=== PATIENT | female | born 1935 | race Caucasian/White ===

== ENCOUNTER → 2016-09-27 | Outpatient (CLI) | payer MEDICARE, OTHER ==
--- NOTE | 2016-09-27 09:10 | US ---
EXAM DESCRIPTION: US THYROID CLINICAL HISTORY: 80 y/o F, NONTOXIC GOITER COMPARISON: None TECHNIQUE: Grayscale and color Doppler imaging of the thyroid gland was performed. Static images were saved to the patient's medical record. FINDINGS: The right thyroid lobe measures 3.7 cm craniocaudal, the left measures 3.4 cm. There is a tiny 3 mm nodule seen within the lower right thyroid lobe. The thyroid gland is heterogeneous with at 3 mm isthmus. IMPRESSION: Today's exam demonstrates a heterogeneous appearing thyroid gland which can be seen in setting of thyroiditis. Tiny 3 mm right thyroid lobe nodule. Comparison with prior study or 1 year followup is suggested. Electronically signed by: Richar Mahajan MD 09/27/2016 09:08
== END ==
LOC: US 08:13
PROVIDERS: ATTEND Family Medicine
DX: E04.9 Nontoxic goiter, unspecified (principal)

== ENCOUNTER → 2016-10-25 | Outpatient (CLI) | payer MEDICARE, OTHER | END | disposition home or self-care (01) | LOC: GMAB 10:43 | PROVIDERS: ATTEND Family Medicine | DX: E03.9 Hypothyroidism, unspecified (principal); I10 Essential (primary) hypertension ==

== ENCOUNTER → 2016-10-26 | Outpatient (CLI) | payer MEDICARE, OTHER | END | disposition home or self-care (01) | LOC: GMAB 14:49 | PROVIDERS: ATTEND Family Medicine | DX: R31.9 Hematuria, unspecified (principal) ==

== ENCOUNTER → 2016-12-14 | Outpatient (CLI) | payer MEDICARE, OTHER ==
--- NOTE | 2016-12-15 10:59 | MRI ---
EXAM DESCRIPTION: Lumbar Spine w/o Contrast CLINICAL HISTORY: 81 years, Female, BACK PAIN bilateral lower extremity radiculopathy COMPARISON: None TECHNIQUE: Multiplanar multi sequence images of the lumbar spine were obtained without gadolinium contrast. FINDINGS: There is grade 1 anterolisthesis at L3-4. Vertebral body height and alignment are otherwise well-maintained. No bone marrow signal abnormalities are noted. The conus lies posterior to the L1-2 disc, and the cauda equina is unremarkable. The paraspinal and visualized retroperitoneal soft tissues are unremarkable. At L1-2, the intervertebral disc and facet joints are unremarkable. At L2-3, there is mild bilateral facet joint degeneration without significant disc bulging, central canal or neuroforaminal stenosis. At L3-4, there is concentric disc bulging, bilateral facet joint degeneration and ligament flavum thickening resulting in severe central canal and moderate bilateral neuroforaminal stenosis. Disc material and or facet joint hypertrophy likely results in abutment of the L4 nerve roots in the lateral recesses bilaterally. At L4-5, there is disc desiccation with loss of intervertebral disc height. Concentric disc bulging, worse in the left foraminal position, bilateral facet joint degeneration and ligamentum flavum thickening are noted resulting in only mild central canal stenosis. There is advanced left-sided and mild right-sided neuroforaminal stenosis with possible abutment of the exiting left L4 nerve root. At L5-S1, there is only mild concentric disc bulging with right-sided facet joint degeneration resulting in only mild bilateral neuroforaminal stenosis, slightly worse on the right side. IMPRESSION: Disc bulging and facet joint degeneration at L3-4 resulting in severe central canal stenosis, moderate bilateral neuroforaminal stenosis and probable nerve root abutment. Disc bulging and facet joint degeneration at L4-5 resulting in severe left-sided neuroforaminal stenosis with probable nerve root abutment. Less advanced central canal and right-sided neuroforaminal stenosis. Less advanced degenerative changes at L5-S1 with only mild neuroforaminal stenosis but no nerve root abutment. Electronically signed by: Reese Andrea MD 12/15/2016 10:54 AM CDT
== END ==
LOC: MRI 10:51
PROVIDERS: ATTEND Family Medicine
DX: M54.5 Low back pain (principal); M51.86 Other intervertebral disc disorders, lumbar region

== ENCOUNTER 2017-03-29 10:25 | Emergency (ER) | payer MEDICARE, OTHER ==
[2017-03-29 10:45] VITALS: TEMP 96.1
--- NOTE | 2017-03-29 10:52 | ED.PDOC ---
History of Present Illness - General Chief Complaint: Cardiovascular Problem Stated Complaint: heart racing,sweating Time Seen by Provider: 03/29/17 10:36 Source: patient Exam Limitations: no limitations - History of Present Illness Initial Comments: Patient presents with a racing heart. She says it has been going on for "hours ". She has a history of atrial fibrillation. She has mild dyspnea. Denies chest pain. + previous episodes. Non-smoker. Occasional bipedal edema. No other complaints. Allergies/Adverse Reactions: Allergies Lidocaine [From Xylocaine] Allergy (Severe, Verified 05/13/16 17:36) Shellfish Allergy Allergy (Verified 05/13/16 17:36) Home Medications: Ambulatory Orders Atorvastatin Calcium [Lipitor] 10 mg PO DAILY 12/01/14 Levothyroxine Sodium [Synthroid] 75 mcg PO DAILY 12/01/14 Meloxicam [Mobic] 7.5 mg PO DAILY 12/01/14 Metoprolol Tartrate 50 mg PO DAILY 12/01/14 Oxybutynin Xl [Ditropan Xl] 10 mg PO DAILY 12/01/14 Pantoprazole Tablet [Protonix] 40 mg PO DAILY 12/01/14 Losartan Potassium 50 mg PO DAILY 05/13/16 Venlafaxine HCl [Effexor Tab] 75 mg PO DAILY 05/13/16 Pregabalin [Lyrica] 50 mg PO BEDTIME 03/29/17 Warfarin Sodium 5 mg PO DAILY 03/29/17 Review of Systems - Review of Systems Constitutional: States: no symptoms reported EENTM: States: no symptoms reported Respiratory: States: no symptoms reported Cardiology: States: no symptoms reported Gastrointestinal/Abdominal: States: no symptoms reported Genitourinary: States: no symptoms reported Musculoskeletal: States: no symptoms reported Skin: States: other - hives this morning Neurological: States: no symptoms reported Endocrine: States: no symptoms reported Hematologic/Lymphatic: States: no symptoms reported Past Medical History (General) - Patient Medical History Hx Seizures: No Hx Stroke: No Hx Dementia: No Hx Asthma: No Hx of COPD: No Hx Cardiac Disorders: Yes - A-Fib Hx Congestive Heart Failure: No Hx Pacemaker: No Hx Hypertension: Yes Hx Thyroid Disease: Yes - hypo Hx Diabetes: No Hx Gastroesophageal Reflux: Yes Hx Renal Disease: No Hx Cancer: No Hx of HIV: No Hx Hepatitis C: No Hx MRSA: No Surgical History: tonsillectomy, Hysterectomy - Vaccination History Hx Influenza Vaccination: Yes Hx Pneumococcal Vaccination: - unknown - Social History Hx Tobacco Use: No Hx Alcohol Use: No Hx Depression: Yes - Female History Patient : No Family Medical History - Family History Mother Living Status: Cause of : pancreatic CA Hx Family Cancer: Yes - pancreas Physical Exam - Physical Exam General Appearance: Alert Respiratory: lungs clear Cardiovascular/Chest: normal peripheral pulses, regular rate, rhythm Gastrointestinal/Abdominal: normal bowel sounds, non tender, soft Skin Exam: normal color Progress - Progress Progress: 03/29/17 12:59 Patient later told me that she had hives this morning. Her heart rate normalized while in the E.D. Labs unremarkable. EKG read by me showed NSR with no ST elevations nor depressions and no T wave inversions. Troponin negative. Departure - Departure Clinical Impression: Sinus tachycardia, Hives Disposition: Discharge to Home or Self Care Condition: Good Departure Forms: ED Discharge - Pt. Copy, Patient Portal Self Enrollment Diet: resume usual diet Activity: increase activity as tolerated Referrals: Mamadou Gil MD [Primary Care Provider] - 1-2 Weeks Home Medications: Ambulatory Orders Atorvastatin Calcium [Lipitor] 10 mg PO DAILY 12/01/14 Levothyroxine Sodium [Synthroid] 75 mcg PO DAILY 12/01/14 Meloxicam [Mobic] 7.5 mg PO DAILY 12/01/14 Metoprolol Tartrate 50 mg PO DAILY 12/01/14 Oxybutynin Xl [Ditropan Xl] 10 mg PO DAILY 12/01/14 Pantoprazole Tablet [Protonix] 40 mg PO DAILY 12/01/14 Losartan Potassium 50 mg PO DAILY 05/13/16 Venlafaxine HCl [Effexor Tab] 75 mg PO DAILY 05/13/16 Pregabalin [Lyrica] 50 mg PO BEDTIME 03/29/17 Warfarin Sodium 5 mg PO DAILY 03/29/17
[2017-03-29 13:09] VITALS: BP 144/79; O2SAT 95
== END 2017-03-29 13:08 | disposition home or self-care (01) ==
LOC: ER 10:25
DX: R00.0 Tachycardia, unspecified (principal); L50.9 Urticaria, unspecified; I48.91 Unspecified atrial fibrillation; I10 Essential (primary) hypertension; E03.9 Hypothyroidism, unspecified; K21.9 Gastro-esophageal reflux disease without esophagitis; Z88.4 Allergy status to anesthetic agent; Z91.013 Allergy to seafood; Z79.01 Long term (current) use of anticoagulants; Z79.899 Other long term (current) drug therapy

== ENCOUNTER → 2017-06-21 | Outpatient (CLI) | payer MEDICARE, OTHER | LOC: MAMMO 15:59 | PROVIDERS: ATTEND Family Medicine | DX: Z12.31 Encounter for screening mammogram for malignant neoplasm of breast (principal) | CPT/HCPCS: 77063; G0202 ==

== ENCOUNTER → 2017-07-12 | Outpatient (CLI) | payer MEDICARE, OTHER ==
--- NOTE | 2017-07-13 14:40 | US ---
EXAM DESCRIPTION: Breast,Left: Ultrasound CLINICAL HISTORY: 81 yearsFemaleABNORMAL MAMMO COMPARISON: Digital 3-D tomosynthesis left breast same visit. Digital 3-D screening bilateral study 06/21/2017. TECHNIQUE: Transcutaneous scanning of the left breast utilizing two-dimensional and Doppler modes. Scanning performed by the windshield technician and Dr. Triana. FINDINGS: Scanning of the upper-outer quadrant of the middle third of the left breast. Hypoechoic mass density in the left breast at the 200 clock position 7 cm from the nipple. Dimensions are 4.8 x 7.3 x 3.2 mm with posterior acoustic shadowing on the edges. Midline posterior acoustic enhancement predominates. Parallel orientation. Echogenic center within the mass without significant calcification. Nonvascular. No other solid mass. No discrete cyst. No parenchymal edema or large calcifications. No skin thickening. IMPRESSION: 1. Bi-Rads Category 2: Benign. 2. Please refer to digital 3-D tomosynthesis left breast diagnostic examination on this visit. The FINDINGS and the follow-up plan were reviewed in person with the patient after the examination. Written communication explaining the IMPRESSION and follow-up will be mailed to the patient and referring care provider. Electronically signed by: Ludwin Triana MD 07/13/2017 2:39 PM DIRECTOR OF VALUATION
--- NOTE | 2017-07-13 14:44 | MAM ---
EXAM DESCRIPTION: 3D Diagnostic, Left: Digital Mammography CLINICAL HISTORY: 81 yearsFemaleABNORMAL MAMMO . No complaints. Focal asymmetry at the 130 clock position of the middle third of the upper-outer quadrant of the left breast.. COMPARISON: 3-D screening tomosynthesis bilateral study 06/21/2017. Targeted left breast ultrasound following this examination.. Report from prior examination also reviewed. TECHNIQUE: Left breast mL and LM projection full-field images, 3-D tomosynthesis digital mammographic technique. Also left breast synthesized MLO and LM full-field images. Digital focal spot compression of the region of interest in the central left breast on CC and LM projections. CAD not utilized. FINDINGS: Left breast parenchymal density pattern is: Scattered areas of fibroglandular density. No skin thickening or nipple retraction solitary microcalcifications. Focal asymmetry is no longer present on the compression images. No abnormal microcalcifications or mass density. ULTRASOUND: Scanning of the upper-outer quadrant of the middle third of the left breast. Hypoechoic mass density in the left breast at the 200 clock position 7 cm from the nipple. Dimensions are 4.8 x 7.3 x 3.2 mm with posterior acoustic shadowing on the edges. Midline posterior acoustic enhancement predominates. Parallel orientation. Echogenic center within the mass without significant calcification. Nonvascular. Consistent with a lymph node. No other solid mass. No discrete cyst. No parenchymal edema or large calcifications. No skin thickening. IMPRESSION: 1. BI-RADS CATEGORY: 2 - BENIGN FINDINGS. FOLLOW UP: Routine digital bilateral screening, one year interval from June 2017 The FINDINGS and the follow-up plan were reviewed in person with the patient after the examination. Written communication explaining the IMPRESSION and follow-up will be mailed to the patient and referring care provider. According to the [employer], yearly mammograms are recommended starting at age 40 and continuing as long as a woman is in good health. Any breast change noted on a breast self-exam should be reported promptly to the patient's healthcare provider. Breast MRI is recommended for women with an approximately 20-25% or greater lifetime risk of breast cancer, including women with a strong family history of breast or ovarian cancer and women who have been treated for Hodgkin's disease. A negative mammographic report should not delay tissue diagnosis in patients with significant clinical history or physical findings. Extremely dense breast tissue limits the sensitivity of digital mammography. Electronically signed by: Ludwin Triana MD 07/13/2017 2:43 PM [facility]
== END | disposition home or self-care (01) ==
LOC: MAMMO 15:04
PROVIDERS: ATTEND Family Medicine
DX: R92.8 Other abnormal and inconclusive findings on diagnostic imaging of breast (principal)
CPT/HCPCS: 76641; G0206; G0279

== ENCOUNTER 2017-08-21 08:12 | Emergency (ER) | payer MEDICARE, OTHER ==
[2017-08-21] MEDS ORDERED: OXYMETAZOLINE NASAL SPRAY 15 ML BTTL ONE (08:25)
[2017-08-21] MEDS ORDERED: OXYMETAZOLINE NASAL SPRAY 15 ML BTTL BNAS PRN (08:29)
--- NOTE | 2017-08-21 08:47 | ED.PDOC ---
History of Present Illness - General Chief Complaint: ENT Problem Stated Complaint: nose bleed Time Seen by Provider: 08/21/17 08:36 Source: patient - History of Present Illness Initial Comments: PT PRESENTS TO THE ED WITH COMPLAINT OF NOSE BLEED SINCE 5:00AM. PT STATES THIS IS THE FIRST TIME SHE HAS HAD A NOSEBLEED RECENTLY AND SHE REPORTS THAT SHE TAKES COUMADIN. PT DENIES CURRENT URI SYMPTOMS. Timing/Duration: this morning Severity: moderate EENT Location: nose Prearrival Treatment: no prearrival treatment Improving Factors: other - HOLDING PRESSURE Worsening Factors: nothing Allergies/Adverse Reactions: Allergies Lidocaine [From Xylocaine] Allergy (Severe, Verified 08/21/17 08:20) Shellfish Allergy Allergy (Verified 08/21/17 08:20) Home Medications: Ambulatory Orders Pantoprazole Tablet [Protonix] 40 mg PO DAILY 12/01/14 Losartan Potassium 50 mg PO DAILY 05/13/16 Venlafaxine HCl [Effexor Tab] 75 mg PO DAILY 05/13/16 Warfarin Sodium 5 mg PO DAILY 03/29/17 Atorvastatin Calcium [Lipitor] 10 mg PO DAILY 08/21/17 Levothyroxine Sodium [Synthroid] 100 mcg PO DAILY 08/21/17 Metoprolol Succinate [Metoprolol Succinate ER] 50 mg PO DAILY 08/21/17 Oxybutynin Chloride [Oxybutynin Chloride ER] 10 mg PO DAILY 08/21/17 Review of Systems - Review of Systems Constitutional: Denies: chills, fever EENTM: Denies: nose congestion, throat pain Respiratory: Denies: cough, short of breath Cardiology: Denies: chest pain, palpitations Gastrointestinal/Abdominal: Denies: nausea, vomiting Genitourinary: Denies: dysuria, frequency Musculoskeletal: Denies: joint pain, joint swelling Skin: Denies: dryness, lesions Neurological: Denies: headache, numbness Endocrine: States: no symptoms reported Hematologic/Lymphatic: States: no symptoms reported Past Medical History (General) - Patient Medical History Hx Seizures: No Hx Stroke: No Hx Dementia: No Hx Asthma: No Hx of COPD: No Hx Cardiac Disorders: Yes - A-Fib Hx Congestive Heart Failure: No Hx Pacemaker: No Hx Hypertension: Yes Hx Thyroid Disease: Yes - hypo Hx Diabetes: No Hx Gastroesophageal Reflux: Yes Hx Renal Disease: No Hx Cancer: No Hx of HIV: No Hx Hepatitis C: No Hx MRSA: No Surgical History: tonsillectomy, Hysterectomy, other - Vaccination History Hx Influenza Vaccination: Yes Hx Pneumococcal Vaccination: No - Social History Hx Tobacco Use: No Hx Alcohol Use: No Hx Depression: Yes - Female History Patient is a Female of Child Bearing Age (10 -59 yrs old): No Patient : No Family Medical History - Family History Mother Living Status: Cause of : pancreatic CA Hx Family Cancer: Yes - pancreas Physical Exam - Physical Exam General Appearance: Alert, Anxious, Well Developed, Well Groomed, Well Hydrated Eye Exam: bilateral normal Nasal Exam: active bleeding - FROM LEFT NARE, NO BLEEDING SITE IDENTIFIED Throat Exam: normal mouth inspection, other - BLOOD IN THE POSTERIOR OROPHARYNX Neck: non-tender, supple, normal inspection Neurologic: alert, normal mood/affect, oriented x 3 Skin Exam: normal color, warm/dry Progress - Progress Progress: 08/21/17 08:30 AFRIN NASAL SPRAY ADMINISTERED IN BOTH NARES. PT INSTRUCTED TO HOLD PRESSURE. 08/21/17 08:55 BLEEDING HAS SLOWED SIGNIFICANTLY ON RE-EVAL. LAB FINDINGS DISCUSSED. ADVISED PT TO SKIP NEXT 2 DOSES OF COUMADIN AND TO FOLLOW UP WITH PCP IN THE NEXT 2 DAYS FOR LAB RECHECK. ADDITIONAL AFRIN ADMINISTERED. PT CONTINUES TO HOLD PRESSURE. 08/21/17 09:40 PT CONTINUES TO HAVE BLEEDING DOWN THE POSTERIOR OROPHARYNX. NASAL PACKING DEVICE PLACED IN LEFT NARE. 08/21/17 10:16 PT COMPLAINS OF DIZZINESS AND NAUSEA. PTS BP FOUND TO BE 63/40. IV ACCESS ESTABLISHED AND FLUID BOLUS ORDERED. LABS SENT. 08/21/17 10:56 PT RESTING COMFORTABLY, BP IMPROVED TO 95 AFTER APPROXIMATELY 3OOCC NS BOLUS. 08/21/17 11:25 PT REPORTS COMPLETE RESOLUTION OF SYMPTOMS. BP 120 SYTOLIC. PT ABLE TO AMBULATE TO RESTROOM WITHOUT DIFFICULTY. 08/21/17 12:15 PT BECAME LIGHT HEADED AGAIN, BP 113 SYSTOLIC. PT NOW HAS OOZING AROUND THE NASAL PACK. WILL MAKE ARRANGEMENTS TO TRANSFER FOR ENT CONSULTATION. - Results/Orders Results/Orders: Laboratory Tests 08/21/17 08/21/17 08/21/17 08:38 08:58 08:58 WBC 5.4 RBC 4.50 Hgb 13.7 Hct 40.8 MCV 90.6 MCH 30.5 MCHC 33.6 RDW 13.8 Plt Count 200 MPV 7.9 Absolute Neuts (auto) 2.90 Absolute Lymphs (auto) 1.80 Absolute Monos (auto) 0.60 Absolute Eos (auto) 0.10 Absolute Basos (auto) 0.00 Neutrophils % 54.0 Lymphocytes % 33.1 Monocytes % 10.5 H Eosinophils % 1.8 Basophils % 0.6 PT 44.5 H* INR 3.990 H* PTT (SP) 53.6 H Sodium 140 Potassium 3.8 Chloride 109 Carbon Dioxide 25 Anion Gap 9.8 L BUN 16 Creatinine 0.63 BUN/Creatinine Ratio 25.4 H Random Glucose 109 H Serum Osmolality 281.2 Calcium 9.1 - EKG/XRAY/CT EKG: Abraham - @56BPM, NL INTERVALS, NL AXIS, Sinus, LVH, nonspecific ST T wave Chg, Unchanged from - 03/29/17 - Consult/PCP Time Called: 10:05 Consult/PCP: DR. GIL Consult Reason/Comments: DISCUSSED CASE. HE AGREES TO FOLLOW UP WITH PT ON MON AT 830. Departure - Departure Clinical Impression: Supratherapeutic INR, Epistaxis not due to trauma, Vaso vagal episode, Hypotension Time of Disposition: 13:41 Disposition: Transfer to Hospital Condition: Fair Departure Forms: ED Discharge - Pt. Copy, Patient Portal Self Enrollment Instructions: DI for Nosebleed Referrals: Mamadou Gil MD [Primary Care Provider] - 1-2 Days (PT TO FOLLOW UP 830 AM MONDAY MORNING FOR NASAL PACK REMOVAL AND REPEAT INR. ) Home Medications: Ambulatory Orders Pantoprazole Tablet [Protonix] 40 mg PO DAILY 12/01/14 Losartan Potassium 50 mg PO DAILY 05/13/16 Venlafaxine HCl [Effexor Tab] 75 mg PO DAILY 05/13/16 Warfarin Sodium 5 mg PO DAILY 03/29/17 Atorvastatin Calcium [Lipitor] 10 mg PO DAILY 08/21/17 Levothyroxine Sodium [Synthroid] 100 mcg PO DAILY 08/21/17 Metoprolol Succinate [Metoprolol Succinate ER] 50 mg PO DAILY 08/21/17 Oxybutynin Chloride [Oxybutynin Chloride ER] 10 mg PO DAILY 08/21/17 Transfer to Outside Facility - Transfer Information Accepting Provider:: DR. Mehreen MILLER Accepting Facility: [facility] Reason for Transfer: required specialist not available - ENT
[2017-08-21] MEDS ORDERED: SODIUM CHLORIDE 0.9% 1000ML 1,000 ML ONE (10:12)
[2017-08-21] MEDS ORDERED: SODIUM CHLORIDE 0.9% (FLUSH) 10 ML SYG IV PRN (10:17)
[2017-08-21] MEDS ORDERED: ONDANSETRON INJ 4 MG/2 ML VIAL IV ONE (10:20)
[2017-08-21] MEDS ORDERED: SODIUM CHLORIDE 0.9% 1000ML 1,000 ML IVS ONE (10:26)
[2017-08-21 12:55] VITALS: O2SAT 94
[2017-08-21 14:41] VITALS: BP 144/82; TEMP 97.4
== END 2017-08-21 14:35 | disposition short-term general hospital (02) ==
LOC: ER 08:12
DX: R04.0 Epistaxis (principal); R55 Syncope and collapse; I95.9 Hypotension, unspecified; R79.1 Abnormal coagulation profile; I48.91 Unspecified atrial fibrillation; I10 Essential (primary) hypertension; E03.9 Hypothyroidism, unspecified; K21.9 Gastro-esophageal reflux disease without esophagitis; Z79.01 Long term (current) use of anticoagulants; Z79.899 Other long term (current) drug therapy
CPT/HCPCS: 36415; 36416; 80048; 81001; 82948; 85025; 85610; 85730; 93005; J2405; J7030

== ENCOUNTER → 2017-08-23 | Outpatient (CLI) | payer MEDICARE, OTHER | END | disposition home or self-care (01) | LOC: GMAB 10:31 | PROVIDERS: ATTEND Family Medicine | DX: E03.9 Hypothyroidism, unspecified (principal) ==

== ENCOUNTER → 2017-11-28 | Outpatient (CLI) | payer MEDICARE, OTHER | LOC: GMAB 10:47 | PROVIDERS: ATTEND Family Medicine | DX: E03.9 Hypothyroidism, unspecified (principal); N39.0 Urinary tract infection, site not specified ==

== ENCOUNTER 2017-12-12 10:56 | Inpatient (IN) | payer MEDICARE, OTHER ==
--- NOTE | 2017-12-12 11:12 | ED.PDOC ---
History of Present Illness - General Chief Complaint: General Stated Complaint: abdominal pain Time Seen by Provider: 12/12/17 11:11 Source: patient Exam Limitations: no limitations - History of Present Illness Initial Comments: Valentina Ivey 82 y/o female brought by friends stating feels feverish yesterday, felt achy on her lower abdomen radiating to upper lumbar area and also with burning urination.Had normal BM,no tarry stools,no diarrhea,felt nauseated ate lots of pineapple yesterday,and this morning had banana and fig cookies.She has A.fib on eliquis,HTN. Timing/Duration: 24 hours Severity: moderate Improving Factors: nothing Worsening Factors: nothing Associated Symptoms: other - see hpi Allergies/Adverse Reactions: Allergies Lidocaine [From Xylocaine] Allergy (Severe, Verified 12/12/17 11:19) Shellfish Allergy Allergy (Verified 12/12/17 11:19) Home Medications: Ambulatory Orders Pantoprazole Tablet [Protonix] 40 mg PO DAILY 12/01/14 Losartan Potassium 50 mg PO DAILY 05/13/16 Venlafaxine HCl [Effexor Tab] 75 mg PO DAILY 05/13/16 Atorvastatin Calcium [Lipitor] 10 mg PO DAILY 08/21/17 Levothyroxine Sodium [Synthroid] 100 mcg PO DAILY 08/21/17 Metoprolol Succinate [Metoprolol Succinate ER] 50 mg PO DAILY 08/21/17 Oxybutynin Chloride [Oxybutynin Chloride ER] 10 mg PO DAILY 08/21/17 Apixaban [Eliquis] 2.5 mg PO DAILY 12/12/17 Review of Systems - Review of Systems Constitutional: States: fever EENTM: States: no symptoms reported Respiratory: States: no symptoms reported Cardiology: States: no symptoms reported Gastrointestinal/Abdominal: States: see HPI Musculoskeletal: States: see HPI Neurological: States: no symptoms reported All other Systems: Reviewed and Negative, No Change from Baseline Past Medical History (General) - Patient Medical History Hx Seizures: No Hx Stroke: No Hx Dementia: No Hx Asthma: No Hx of COPD: No Hx Cardiac Disorders: Yes - A-Fib Hx Congestive Heart Failure: No Hx Pacemaker: No Hx Hypertension: Yes Hx Thyroid Disease: Yes - hypo Hx Diabetes: No Hx Gastroesophageal Reflux: Yes Hx Renal Disease: No Hx Cancer: No Hx of HIV: No Hx Hepatitis C: No Hx MRSA: No Surgical History: appendectomy, tonsillectomy, other - hysterectomy,rectocele/ cystocele surgery,cataract,cardiac cath,TST,colonoscopy,EGD - Vaccination History Hx Influenza Vaccination: Yes Hx Pneumococcal Vaccination: No - Social History Hx Tobacco Use: No Hx Alcohol Use: No Hx Depression: Yes Hx Physical Abuse: No Hx Emotional Abuse: No - Activities of Daily Living Patient Lives Alone: Yes Grooming Ability: Independent Eating (Feeding) Ability: Independent Toileting Ability: Independent - Female History Patient : No Family Medical History - Family History Mother Living Status: Cause of : pancreatic CA Hx Family Diabetes: Yes - dad Hx Family Cancer: Yes - pancreas-mom;multiple myeloma-brother Hx Family;Other: [id number] Physical Exam - Physical Exam General Appearance: Alert, Comfortable, No apparent distress Eye Exam: bilateral normal Ears, Nose, Throat: hearing grossly normal, normal ENT inspection Neck: non-tender, full range of motion, supple Respiratory: chest non-tender, lungs clear, normal breath sounds, no respiratory distress Cardiovascular/Chest: normal peripheral pulses, regular rate, rhythm, no gallop , no murmur Peripheral Pulses: radial,right: 2+, radial,left: 2+ Gastrointestinal/Abdominal: normal bowel sounds, non tender, soft, no organomegaly Back Exam: no CVA tenderness, no vertebral tenderness Extremity: non-tender, normal inspection, no pedal edema, normal capillary refill Neurologic: alert, oriented x 3 Skin Exam: normal color, warm/dry Progress - Progress Progress: 12/12/17 13:09 Vital Signs - 8 hr 12/12/17 11:13 Temperature 99.3 F Pulse Rate [ 103 H Left Radial] Respiratory 20 Rate Blood Pressure 141/65 [Left Arm] O2 Sat by Pulse 96 Oximetry - Results/Orders Results/Orders: 12/12/17 11:12 IV Care:Saline Lock per Protoc QSHIFT 12/12/17 11:22 URINE CULTURE W/COLONY COUNT Stat 12/12/17 11:31 BLOOD CULTURE Stat 12/12/17 12:52 URINE CULTURE W/COLONY COUNT Stat 12/12/17 12:54 levoFLOXacin 500MG IV [Levaquin 500MG IV] 500 mg Premix Bag 1 bag IVPB ONCE Laboratory Results - last 24 hr 12/12/17 12/12/17 12/12/17 11:22 11:31 11:31 WBC 9.1 RBC 4.44 Hgb 13.0 Hct 38.6 MCV 86.8 MCH 29.2 MCHC 33.6 RDW 14.2 Plt Count 152 MPV 7.8 Absolute Neuts (auto) 7.80 H Absolute Lymphs (auto) 0.40 L Absolute Monos (auto) 0.90 H Absolute Eos (auto) 0.00 Absolute Basos (auto) 0.00 Neutrophils % 85.4 H Lymphocytes % 4.6 L Monocytes % 9.5 H Eosinophils % 0.1 L Basophils % 0.4 PT 15.6 H INR 1.350 PTT (SP) 33.2 Sodium 135 Potassium 3.6 Chloride 103 Carbon Dioxide 21 Anion Gap 14.6 BUN 9 Creatinine 0.72 BUN/Creatinine Ratio 12.5 Random Glucose 234 H Serum Osmolality 276.3 Lactic Acid 3.5 H* Calcium 9.2 Magnesium 1.7 L Total Bilirubin 1.3 H Direct Bilirubin 0.2 Indirect Bilirubin 1.1 H AST 44 H ALT 38 Alkaline Phosphatase 77 Creatine Kinase 17 L CK-MB (CK-2) 0.5 CK-MB (CK-2) % Not Reportable Troponin I < 0.02 Serum Total Protein 7.1 Albumin 3.7 Lipase 26 Urine Color Yellow Urine Appearance Cloudy Urine pH 6.5 Ur Specific [place] 1.015 Urine Protein 100 H Urine Glucose (UA) Negative Urine Ketones Trace Urine Blood Small H Urine Nitrite Positive H Urine Bilirubin Negative Urine Urobilinogen 1.0 Ur Leukocyte Esterase Small H Urine RBC 3-5 H Urine WBC Tntc H Ur Epithelial Cells 30-40 Urine Bacteria 4+ H - EKG/XRAY/CT XRAY: chest - atelectasis CT Ordered: Yes - abd/p-fatty liver Departure - Departure Clinical Impression: Hyperglycemia, unspecified, MARLOW (nonalcoholic steatohepatitis), History of atrial fibrillation UTI (urinary tract infection) Qualifiers: Urinary tract infection type: site unspecified Hematuria presence: without hematuria Qualified Code(s): N39.0 - Urinary tract infection, site not specified Fever Qualifiers: Fever type: due to other condition Qualified Code(s): R50.81 - Fever presenting with conditions classified elsewhere Time of Disposition: 13:15 Disposition: Admit Patient Condition: Fair Departure Forms: Patient Portal Self Enrollment Referrals: Mamadou Gil MD [Primary Care Provider] - 1-2 Weeks Home Medications: Ambulatory Orders Pantoprazole Tablet [Protonix] 40 mg PO DAILY 12/01/14 Losartan Potassium 50 mg PO DAILY 05/13/16 Venlafaxine HCl [Effexor Tab] 75 mg PO DAILY 05/13/16 Atorvastatin Calcium [Lipitor] 10 mg PO DAILY 08/21/17 Levothyroxine Sodium [Synthroid] 100 mcg PO DAILY 08/21/17 Metoprolol Succinate [Metoprolol Succinate ER] 50 mg PO DAILY 08/21/17 Oxybutynin Chloride [Oxybutynin Chloride ER] 10 mg PO DAILY 08/21/17 Apixaban [Eliquis] 2.5 mg PO DAILY 12/12/17 Decision To Admit - Decistion To Admit Decision to Admit Reason: Admit from ER Decision to Admit Date: 12/12/17 - D/W [place] Hernández-ANP/Hospitalist Decision to Admit Time: 13:10
[2017-12-12] MEDS ORDERED: PROMETHAZINE HCL INJ 25 MG/ML VIAL IM ONE (12:01)
[2017-12-12] MEDS ORDERED: fentaNYL CITRATE INJ 50 MCG/ML AMP IV ONE (12:01)
[2017-12-12] MEDS ORDERED: SODIUM CHLORIDE 0.9% 500ML 500 ML IVS ONE (12:02)
--- NOTE | 2017-12-12 12:26 | RAD ---
EXAM DESCRIPTION: Chest,1 View CLINICAL HISTORY: 82 years Female, pain COMPARISON: Previous study May 13, 2016 TECHNIQUE: AP portable chest. FINDINGS: Heart size is normal with normal pulmonary vascularity. Discoid atelectasis or linear scar in the left lung base appears slightly more prominent than on previous study. Prominent ascending aorta is noted. No consolidating infiltrate. No pulmonary mass or worrisome nodule. No pneumothorax or pleural effusion. Bones are unremarkable. IMPRESSION: Discoid atelectasis in left lung base. Otherwise no acute process is identified in the chest. Electronically signed by: Derrick Oakes MD 12/12/2017 12:24 PM CDT
[2017-12-12] MEDS ORDERED: levoFLOXacin 500MG IV 500 MG in PREMIX BAG 1 BAG IVPB ONE (12:54)
--- NOTE | 2017-12-12 12:54 | CT ---
EXAM DESCRIPTION: Abdoment/Pelvis w/o Contrast CLINICAL HISTORY: abdominal pain COMPARISON: May 19, 2016 TECHNIQUE: Noncontrast transaxial CT images of the abdomen and pelvis are obtained. This exam was performed according to our departmental dose-optimization program, which includes automated exposure control, adjustment of the mA and/or kV according to patient size and/or use of iterative reconstruction technique . FINDINGS: Lung bases are unremarkable. Question small hiatal hernia. Liver remains enlarged measuring 17.3 cm with heterogeneous decreased attenuation is seen with fatty infiltration. 6 mm gallstone in the dependent portion of the gallbladder seen without gallbladder wall thickening or surrounding inflammation. No biliary tract obstruction is seen. Noncontrast appearance of the spleen, pancreas, and adrenal glands is unremarkable. Mild atherosclerotic disease. There are at least 2 tiny less than 2 mm nonobstructing calcifications in lower pole calyx of the right kidney. No ureteral calcification or obstruction is seen. Simple 1.9 cm left renal cortical cyst in the upper pole is seen. Urinary bladder is contracted and unremarkable. 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 The ovaries are not identified. The appendix is not seen. No small bowel obstruction or bowel wall thickening. Stomach is unremarkable. Colon is unremarkable. Mild scattered diverticuli of the descending to sigmoid colon without associated inflammatory changes or fluid collection is seen. Small bilateral fat-containing inguinal hernias. No pathologic lymphadenopathy. Moderate to severe disc disease and facet arthropathy from L3 through S1 is seen. IMPRESSION: Cholelithiasis. Nonobstructing right nephrolithiasis. Mild colon diverticulosis without CT evidence of diverticulitis. Hepatomegaly with hepatic steatosis is again seen. Other stable chronic findings as described above. Electronically signed by: Toi Frederick MD 12/12/2017 12:52 PM CDT
[2017-12-12] MEDS ORDERED: levoFLOXacin 500MG IV 100 ML IVPB ONE (14:14)
--- NOTE | 2017-12-12 14:31 | HP ---
SUPERVISING PHYSICIAN: Deon Hernadez M.D. CHIEF COMPLAINT: Abdominal pain. HISTORY OF PRESENT ILLNESS: Ms. Ivey is an 82 year-old female patient that was brought by a friend to the Emergency Department because she noted she was feeling like she had a fever yesterday and achy all over with lower abdominal pain radiating up into her lower back, also with some dysuria. She denied any diarrhea, tarry stools, but had some nausea. In the E. R., laboratory studies showed she had a white count of 9,100 with a left shift on differential. Chemistries showed normal electrolytes. Magnesium was low at 1.7. Bilirubin was slightly elevated at 1.3 with an elevated AST of 44. All other liver functions were within normal limits. Lipase was normal at 26 as well as troponin was less than 0.02. Urinalysis was completed and showed she had a significant pyuria with too numerous to count WBCs and 4+ bacteria with the dipstick revealing positive nitrites. Lactic acid was completed that showed to be elevated at 3.5. Vital signs showed that the patient was running a low- grade temperature at 99.3. Given the lactic acid that was elevated along with the significant urinary tract infection and continuing abdominal pains, Dr. Chirinos, E. R. physician, had a CT abdomen and pelvis completed without contrast and per radiology interpretation there was note of a nonobstructing right nephrolithiasis, some mild colon diverticulosis without any CT evidence of diverticulitis with other chronic findings. Given the low-grade fever, lactic acid that is elevated and significant pyuria, the patient is now going to be admitted for sepsis due to underlying urinary tract infection. Blood cultures were completed and she was started on Levaquin in the E. R. She was admitted in stable condition to the Medical/Surgical floor. PAST MEDICAL HISTORY: 1. Seasonal allergies. 2. Gastroesophageal reflux disease. 3. Hyperlipidemia. 4. Hypertension. 5. Hypothyroidism on supplementation. 6. Degenerative disc disease. 7. History of atrial fibrillation on Eliquis. 8. Depression and anxiety. PAST SURGICAL HISTORY: 1. Hysterectomy. 2. Tonsillectomy. 3. Cataract surgery of the right eye. HOME MEDICATIONS: 1. Effexor 75 mg daily. 2. Protonix 40 mg daily. 3. Oxybutynin chloride extended release 10 mg daily. 4. Metoprolol succinate extended release 50 mg daily. 5. Losartan potassium 50 mg. 6. Synthroid 100 mcg daily. 7. Lipitor 10 mg daily. 8. Eliquis 2.5 mg daily. ALLERGIES: LIDOCAINE AND SHELL FISH ALLERGY. FAMILY HISTORY: Mother had pancreatic cancer. SOCIAL HISTORY: The patient is a . She lives in [place]. She has never smoked and does not drink alcohol. REVIEW OF SYSTEMS: CONSTITUTIONAL: Complains of chills and fever. HEENT: No nasal congestion, headache, sore throat, ear aches. RESPIRATORY: No cough, shortness of breath, wheezing. CARDIOVASCULAR: No chest pains, palpitations or syncopal episodes. GASTROINTESTINAL: As noted in history of present illness, generalized abdominal pain with some nausea but no vomiting. No constipation. GENITOURINARY: As noted in history of present illness, dysuria. No hematuria NEUROLOGIC: Denies any headaches, syncope, ataxia, seizures. PHYSICAL EXAMINATION: VITAL SIGNS: Initial temperature in the Emergency Room showed a low-grade temperature of 99.3, pulse 103, blood pressure 141/65, respirations 20, satting 96% on room air. Admission weight was 93.7 kg. GENERAL: The patient was alert. Appears to be in no acute distress. Well nourished. Well hydrated. HEENT: Tympanic membranes were clear bilaterally. Oropharynx was pink and moist without any lesions. NECK: Supple, non-tender. Full range of motion. No jugular venous distention. CHEST: Lungs are clear to auscultation without any rhonchi, wheezing or rales. CARDIOVASCULAR: Regular rate and rhythm without appreciable murmurs, gallops, or rubs. ABDOMEN: Soft, non-tender with positive bowel sounds. There was some tenderness noted to the suprapubic area. BACK: No CVA tenderness. EXTREMITIES: No clubbing, cyanosis or edema. NEUROLOGIC: She is alert and oriented times three. LABORATORY: White count showed to be 9,100 with 13.0 hemoglobin, hematocrit 38.6, platelet count 152,000. Differential did show a left shift. Coagulation studies showed just slightly elevated PT at 15.6, but the patient takes Eliquis. PTT was 33.2. Chemistry showed normal electrolytes with potassium 3.6 , BUN 9, creatinine 0.72. Lactic acid was elevated at 3.5, calcium 9.2, magnesium was low at 1.7. Bilirubin was slightly elevated at 1.3. AST was elevated at 44, ALT normal, alkaline phosphatase normal. CK normal. Troponin was less than 0.02. Lipase was normal at 26. Urinalysis showed 100 protein, small amount of blood, positive nitrites, small leukocyte esterase. Microscopic showing 3 to 5 RBCs, too numerous to count WBCs, 30 to 40 epithelials and 4+ bacteria. MICROBIOLOGY: Urine culture is pending after clean catch specimen. Blood cultures are pending. RADIOLOGY: Initially she had a chest x-ray in the Emergency Department and per radiology interpretation showed discoid atelectasis in the left base, otherwise no acute processes identified in the chest. She also had an abdominal and pelvic CT without contrast and per radiology interpretation there was note of a nonobstructing right nephrolithiasis with mild colon diverticulosis without any evidence of diverticulitis. There was note of hepatomegaly with hepatic steatosis noted on previous exams. There were other stable chronic findings that were noted. Please refer to that result for those findings. ASSESSMENT: 1. Urinary tract infection with cultures pending with the patient started on Levaquin. 2. Sepsis as noted with a heart rate of 108, low-grade temperature of 99.6. Infectious source identified as urine and elevated lactic acid. 3. Abdominal pain secondary to #[address] findings of diverticulosis but no evidence of diverticulitis. 4. Gastroesophageal reflux disease. 5. Hypertension. 6. Hypothyroidism on supplementation., 7. Seasonal allergies. 8. Degenerative disc disease. PLAN: The patient is going to be admitted to the Medical/Surgical floor for ongoing treatment of sepsis secondary to urinary tract infection. She was started on antibiotics to include Levaquin parenterally after blood cultures were completed. This will be continued at 500 mg every 24 hours. She was given 500 of saline in the E. R. This will be followed-up with additional fluids to include D5 half normal saline with 20 of potassium at 80 an hour. Will repeat a lactic acid in 5 to 6 hours. To be on DVT prophylaxis and continue Eliquis. Will await final urine cultures to further target antibiotic therapy. Will anticipate length of stay to be at least 2 to 3 days and until cultures are completed, and the patient is clinically stable, will continue to treat and monitor closely. Once stable, the patient can be discharged to have followup with Dr. Gil, her primary care physician. [facility][id number] [facility]
[2017-12-12] MEDS ORDERED: SODIUM CHLORIDE 0.9% (FLUSH) 10 ML SYG IV PRN (15:20)
[2017-12-12] MEDS ORDERED: MAGNESIUM SULFATE PREMIX 2GM 2 GM in PREMIX BAG 1 BAG IVPB ONE (15:27)
[2017-12-12] MEDS ORDERED: IV SET AND CAP CHANGE INJ INJ SCH (15:30)
[2017-12-12] MEDS ORDERED: MAGNESIUM SULFATE PREMIX 2GM 50 ML IVPB ONE (15:34)
[2017-12-12] MEDS: KCL 20MEQ/D5 1/2NS 1,000 ML IVS PRN (15:38)
--- NOTE | 2017-12-12 17:24 | PCM.CORE ---
Physician DVT/VTE - Prophylaxis Currently: Patient already on anticoagulation therapy - quinn - Nurse DVT Assessment & Total Each Risk Factor Represents 3 Points: Age over 75 years Each Risk Factor Represents 1 Point: Medical PT at Bed Rest Each Risk Factor is 1 Point: Obesity (BMI >25) DVT Assessment Score: 5 - 5 or more Very High Risk Treatments: Early Ambulation *, Sequential Compression Device
[2017-12-12] MEDS: ACETAMINOPHEN 325 MG TAB PO PRN ×2 (19:35→21:35)
[2017-12-12] MEDS ORDERED: ONDANSETRON INJ 4 MG/2 ML VIAL IV PRN (20:08)
[2017-12-12] MEDS ORDERED: PROMETHAZINE HCL INJ 12.5 MG in SODIUM CHLORIDE 0.9% 50ML 50 ML IVPB PRN (20:08)
[2017-12-13] MEDS: KCL 20MEQ/D5 1/2NS 1,000 ML IVS PRN (05:33)
[2017-12-13] MEDS: LOSARTAN POTASSIUM 25 MG TAB PO SCH (08:34)
[2017-12-13] MEDS: METOPROLOL SUCCINATE XL 50 MG TAB PO SCH (08:34)
[2017-12-13] MEDS: APIXABAN 2.5 MG TAB PO SCH (08:34)
[2017-12-13] MEDS: LEVOTHYROXINE SODIUM 0.1 MG TAB PO SCH (08:34)
[2017-12-13] MEDS: BIFIDOBACTERIUM INFANTIS 4 MG CAP PO SCH (08:34)
[2017-12-13] MEDS: PANTOPRAZOLE SODIUM TAB 40 MG PO SCH (08:34)
[2017-12-13] MEDS: VENLAFAXINE HCL TAB 75 MG TAB PO SCH (08:36)
[2017-12-13] MEDS ORDERED: NON-FORMULARY MEDICATION 1 EA MIS (Oxybutynin Chloride [Oxybutynin Chloride Er] 10 MG) PO SCH (09:00)
[2017-12-13] MEDS ORDERED: levoFLOXacin 500MG IV 100 ML IVPB ONE (09:15)
[2017-12-13] MEDS: levoFLOXacin 500MG IV 500 MG in PREMIX BAG 1 BAG IVPB SCH (09:28)
[2017-12-13] MEDS: TOLTERODINE TARTRATE ER 4 MG CAP PO SCH (09:33)
--- NOTE | 2017-12-13 13:25 | PN ---
SUPERVISING PHYSICIAN: Deon Hernadez MD DATE: 12/13/17 SUBJECTIVE: The patient is sitting up in her bed eating her lunch. She complains of getting chills and then feverish. She did have a temperature overnight. She also was nauseated and vomited during the night, but she has had no nausea or vomiting in the last 7 to 8 hours. She denies chest pain, shortness of breath. OBJECTIVE: VITAL SIGNS: T-max 24 hours 103.3. It is now 97.9. Heart rate 99. Blood pressure 137/77. Respiratory rate 18. O2 saturation 94% on room air. RESPIRATORY: Essentially clear to auscultation bilaterally. CARDIAC: Regular rate and rhythm. GASTROINTESTINAL: Abdomen is soft, nondistended, nontender. Bowel sounds are positive. There is no CVA tenderness. SKIN: Skin is slightly clammy. NEUROLOGIC: Awake, alert and oriented times three. LABORATORY: Sodium 140, potassium 4, chloride 110, carbon dioxide 25, BUN 8, creatinine 0.48, glucose 163, magnesium 2.3. WBCs 9.4, hemoglobin 11.7, hematocrit 34.8. Preliminary urine cultures show gram negative rods. Preliminary blood cultures show no growth after 24 hours. All other labs and films have been reviewed via the EMR. ASSESSMENT: 1. Urinary tract infection with cultures showing Escherichia coli. The patient is on Levaquin. 2. Sepsis is noted with a heart rate of 108, temperature as high as 101.3 and elevated lactic acid on admission. 3. Abdominal pain secondary to #1. 4. Gastroesophageal reflux disease. 5. Hypertension. 6. Hypothyroidism. 7. Seasonal allergies. 8. Degenerative disc disease. PLAN: We will continue present supportive care. She will continue on Levaquin and we will monitor her cultures. Sensitivities should be available tomorrow. I will hold off on her labs for now. She is clinically improving. I will discontinue her IV fluids. We will continue to monitor the patient closely and follow as needed. Dr. Hernadez is the collaborating physician and available for consultation. #[id number] [facility]
[2017-12-13] MEDS: SODIUM CHLORIDE 0.9% (FLUSH) 10 ML SYG IV SCH ×2 (13:30→20:35)
[2017-12-13] MEDS: ATORVASTATIN 10 MG TAB PO SCH (20:34)
[2017-12-13] MEDS: ACETAMINOPHEN 325 MG TAB PO SCH (20:35)
[2017-12-13] MEDS: diphenhydrAMINE HCL 25 MG CAP PO SCH (20:35)
[2017-12-14] MEDS: LEVOTHYROXINE SODIUM 0.1 MG TAB PO SCH (05:33)
[2017-12-14] MEDS ORDERED: levoFLOXacin 500MG IV 100 ML IVPB ONE (08:32)
[2017-12-14] MEDS: TOLTERODINE TARTRATE ER 4 MG CAP PO SCH (09:27)
[2017-12-14] MEDS: SODIUM CHLORIDE 0.9% (FLUSH) 10 ML SYG IV SCH ×2 (09:28→20:40)
[2017-12-14] MEDS: levoFLOXacin 500MG IV 500 MG in PREMIX BAG 1 BAG IVPB SCH (09:28)
[2017-12-14] MEDS: APIXABAN 2.5 MG TAB PO SCH ×2 (09:28→20:39)
[2017-12-14] MEDS: LOSARTAN POTASSIUM 25 MG TAB PO SCH (09:28)
[2017-12-14] MEDS: VENLAFAXINE HCL TAB 75 MG TAB PO SCH (09:28)
[2017-12-14] MEDS: BIFIDOBACTERIUM INFANTIS 4 MG CAP PO SCH (09:28)
[2017-12-14] MEDS: PANTOPRAZOLE SODIUM TAB 40 MG PO SCH (09:28)
[2017-12-14] MEDS: METOPROLOL SUCCINATE XL 50 MG TAB PO SCH (09:28)
--- NOTE | 2017-12-14 17:18 | PN ---
SUPERVISING PHYSICIAN: Deon eHrnadez MD DATE: 12/14/17 SUBJECTIVE: The patient is sitting up in a chair in her hospital room. She said she feels much better than she did yesterday. She continues to have occasional fever and chills but much improved since admission and she has no chest pain, nausea, vomiting, diarrhea or constipation. OBJECTIVE: VITAL SIGNS: T-max 24 hours 99.4. Pulse 96. Blood pressure 142/ 79. Respiratory rate 18. O2 saturation 95% on room air. RESPIRATORY: Essentially clear to auscultation bilaterally. CARDIAC: Regular rate and rhythm. GASTROINTESTINAL: Abdomen is soft, nondistended, nontender. Bowel sounds are positive. NEUROLOGIC: Awake, alert and oriented times three. LABORATORY: Electrolytes are basically within normal limits with creatinine at 0.48 and glucose 163. Magnesium 2.3. WBCs 9.4, neutrophils 76.9%. All other labs and films have been reviewed via the EMR. ASSESSMENT: 1. Urinary tract infection with cultures showing Escherichia coli. The patient is on Levaquin. 2. Sepsis is noted with a heart rate of 108, temperature as high as 101.3 and elevated lactic acid on admission. 3. Abdominal pain secondary to #1. 4. Gastroesophageal reflux disease. 5. Hypertension. 6. Hypothyroidism. 7. Seasonal allergies. 8. Degenerative disc disease. PLAN: We will continue present supportive care. The patient has had a low grade fever in the last 24 hours, but has not had a high fever in almost 36 hours. If she continues overnight to be fever free, we will be able to send her home on p.o. Levaquin. I will repeat her labs in the morning and continue to encourage good pulmonary hygiene. Hopefully, she can be discharged tomorrow. We will continue to monitor the patient closely and follow as needed. Dr. Hernadez is the collaborating physician and available for consultation. #[id number] [facility]
[2017-12-14] MEDS ORDERED: PANTOPRAZOLE SODIUM TAB 40 MG PO ONE (20:13)
[2017-12-14] MEDS: diphenhydrAMINE HCL 25 MG CAP PO SCH (20:39)
[2017-12-14] MEDS: ACETAMINOPHEN 325 MG TAB PO SCH (20:40)
[2017-12-14] MEDS: ATORVASTATIN 10 MG TAB PO SCH (20:40)
[2017-12-15] MEDS: LEVOTHYROXINE SODIUM 0.1 MG TAB PO SCH (06:08)
[2017-12-15] MEDS ORDERED: PANTOPRAZOLE SODIUM TAB 40 MG PO SCH (06:30)
[2017-12-15] MEDS ORDERED: levoFLOXacin 250MG IV 50 ML IVPB ONE (07:45)
[2017-12-15] MEDS: APIXABAN 2.5 MG TAB PO SCH (08:14)
[2017-12-15] MEDS: LOSARTAN POTASSIUM 25 MG TAB PO SCH (08:14)
[2017-12-15] MEDS: VENLAFAXINE HCL TAB 75 MG TAB PO SCH (08:14)
[2017-12-15] MEDS: METOPROLOL SUCCINATE XL 50 MG TAB PO SCH (08:14)
[2017-12-15] MEDS: TOLTERODINE TARTRATE ER 4 MG CAP PO SCH (08:14)
[2017-12-15] MEDS: BIFIDOBACTERIUM INFANTIS 4 MG CAP PO SCH (08:14)
[2017-12-15] MEDS: SODIUM CHLORIDE 0.9% (FLUSH) 10 ML SYG IV SCH (08:16)
[2017-12-15] MEDS ORDERED: levoFLOXacin 250MG IV 250 MG in PREMIX BAG 1 BAG IVPB SCH (09:00)
[2017-12-15 14:05] VITALS: BP 148/84; TEMP 98.2; O2SAT 94
--- NOTE | 2017-12-18 19:39 | DS ---
SUPERVISING PHYSICIAN: Deon Hernadez M.D. DISCHARGE DIAGNOSIS: 1. Urinary tract infection with cultures showing Escherichia coli. The patient was on Levaquin while in the hospital. 2. Sepsis with a heart rate of 108, temperature 101.3 and an elevated lactic acid on admission. 3. Abdominal pain secondary to #1. 4. Gastroesophageal reflux disease. 5. Hypertension. 6. Hypothyroidism. 7. Seasonal allergies. 8. Degenerative disc disease. HISTORY OF PRESENT ILLNESS: This is an 82 year-old female patient who was brought to the Emergency Room due to feeling like she had a fever and she was achy all over with lower abdominal pain that radiated up her back. She also had some dysuria. There was no diarrhea or tarry stools, but she did have some nausea. In the E. R., laboratory studies showed she had a white count of 9,100 with a left shift on differential. Chemistries showed normal electrolytes with magnesium at 1.7. Bilirubin was slightly elevated at 1.3 with an elevated AST of 44. All other liver functions were within normal limits. Lipase was normal at 26 as well as troponin was less than 0.02. Urinalysis showed significant pyuria and urine WBCs too numerous to count with 4+ urine bacteria as well as positive nitrites. Initial lactic acid was completed showing it to be elevated at 3.5. Vital signs showed a low-grade temperature at 99.3. The patient was admitted to the hospital for a urinary tract infection. The E. R. physician had a CT of the abdomen and pelvis completed and showed nonobstructing right nephrolithiasis with some mild colon diverticulosis without any CT evidence of diverticulitis or other chronic findings. Blood cultures were drawn. She was started on Levaquin as well as some fluids. She was admitted to the Medical/ Surgical floor. HOSPITAL COURSE: After fluids, her lactic acid improved to 1.5 and her subsequent chemistries were basically within normal limits. There was some concern about her elevated blood sugars on admission and a hemoglobin A1c was done and it was 6.2. Neutrophils normalized as well as her CBC. Blood cultures showed no growth after 5 days but her final urine culture was positive for Escherichia coli that was sensitive to Levaquin, and today she will be discharged home in stable condition. DISCHARGE PLAN: The patient will be discharged home in stable condition. She is to resume her previous activity and previous diet. She has a followup appointment with Dr. Gil on 12/20/17 at 9:45 AM. She will continue with 6 additional days of Levaquin. She is to return to the hospital or followup with Dr. Gil for any further problems or complications. DISCHARGE MEDICATIONS: 1. Pantoprazole. 2. Effexor. 3. Losartan. 4. Oxybutynin chloride. 5. Metoprolol. 6. Lipitor. 7. Synthroid. 8. Eliquis. 9. Align. 10. Levaquin. Dr. Hernadez is the collaborating physician available for consultation. #[id number] [facility]
== END 2017-12-15 14:40 | disposition home or self-care (01) | DRG 872 ==
LOC: ER 10:56 → OBSVTOIN 14:29 → MS 14:29
PROVIDERS: ADMIT Nurse Practitioner Family; ATTEND Nurse Practitioner Acute Care
DX: A41.51 Sepsis due to Escherichia coli [E. coli] (principal); N39.0 Urinary tract infection, site not specified; E87.2 Acidosis; I48.91 Unspecified atrial fibrillation; Z79.01 Long term (current) use of anticoagulants; Z91.013 Allergy to seafood; Z88.8 Allergy status to other drugs, medicaments and biological substances; E03.9 Hypothyroidism, unspecified; F32.9 Major depressive disorder, single episode, unspecified; K21.9 Gastro-esophageal reflux disease without esophagitis; I10 Essential (primary) hypertension; K57.30 Diverticulosis of large intestine without perforation or abscess without bleeding; E78.5 Hyperlipidemia, unspecified; F41.9 Anxiety disorder, unspecified; N20.0 Calculus of kidney; R73.9 Hyperglycemia, unspecified

== ENCOUNTER → 2017-12-20 | Outpatient (CLI) | payer MEDICARE, OTHER | LOC: LAB.O 14:35 | PROVIDERS: ATTEND Family Medicine | DX: R94.5 Abnormal results of liver function studies (principal) ==

== ENCOUNTER → 2017-12-26 | Outpatient (CLI) | payer MEDICARE, OTHER ==
--- NOTE | 2017-12-26 14:12 | US ---
EXAM DESCRIPTION: Liver CLINICAL HISTORY: ABNORMAL RESULTS OF LIVER FUNCTION STUDIES. Abnormal results of liver function studies. COMPARISON: CT abdomen pelvis December 12, 2017. TECHNIQUE: Routine sonographic images of the right upper quadrant of the abdomen were acquired and submitted for review. FINDINGS: Liver: Size- mildly enlarged measuring approximately 16 cm at the midclavicular line. Echogenicity- mild diffuse increased echogenicity of the liver parenchyma commonly associated with fatty liver disease. Mass- none Bile ducts- intrahepatic and extrahepatic bile ducts not dilated with common bile duct measuring 0.3 cm. Gallbladder: Several shadowing gallstones are present measuring up to 0.5 cm. No gallbladder wall thickening or pericholecystic fluid is demonstrated. PICC risk: Not well seen to comment on. Right kidney: normal Aorta & Inferior vena cava: visualized portions appear normal Ascites: none IMPRESSION: Hepatomegaly with diffuse increased echogenicity commonly associated with hepatic steatosis. Simple appearing cholelithiasis. Electronically signed by: Antony Tyson MD 12/26/2017 2:11 PM CDT
== END ==
LOC: US 08:58
PROVIDERS: ATTEND Family Medicine
DX: R94.5 Abnormal results of liver function studies (principal)

== ENCOUNTER 2018-03-14 05:40 | Day surgery (SDC) | payer MEDICARE, OTHER ==
[2018-03-14] MEDS ORDERED: LACTATED RINGERS 1,000 ML ONE (06:06)
[2018-03-14] MEDS ORDERED: MIDAZOLAM INJ 2 MG/2 ML VIAL ONE (07:23)
[2018-03-14] MEDS ORDERED: fentaNYL CITRATE INJ 50 MCG/ML AMP ONE (07:24)
[2018-03-14] MEDS ORDERED: PROPOFOL 200 MG/20 ML VIAL IV ONE (10:00)
[2018-03-14 13:13] VITALS: TEMP 96.8
[2018-03-14 13:14] VITALS: BP 142/94; O2SAT 95
--- NOTE | 2018-04-18 13:33 | OP ---
DATE OF PROCEDURE: 03/14/18 PREPROCEDURE DIAGNOSIS: 1. Colorectal cancer screening. POSTPROCEDURE DIAGNOSIS: 1. Suboptimal bowel preparation. 2. Internal hemorrhoids. PROCEDURE: 1. Colonoscopy. SURGEON: Marcos Escalante MD COMPLICATIONS: No immediate complications. SEDATION: The patient was sedated via IV propofol by the Anesthesia Department. CONSENT: Prior to the procedure, risks, benefits and alternatives to the therapy were discussed with the patient. The risks included bleeding, infection , perforation and . The patient agreed to the procedure and signed a consent. PREPROCEDURE ANESTHESIA ASSESSMENT: An examination revealed no contraindication to sedation. Airway examination demonstrated a Mallampati class type 2, ASA grade assessment type 2. Throughout the procedure, the patient's blood pressure, pulse and oxygen saturation were monitored continuously. PROCEDURE: The patient was placed in the left lateral decubitus position and a rectal examination was performed. The rectal examination was within normal limits. The Olympus colonoscope was passed in the anus, rectum, traversing the colon to the level of the cecum as identified by the appendiceal orifice. The scope was retracted and the mucosa was visualized. The entirety of the exam was performed with direct visualization. Retroflexion was performed in the rectum. Preparation quality was poor. The withdrawal time was greater than 6 minutes. The patient tolerated the procedure well. FINDINGS: 1. Stool was found throughout the colon. No evident gross abnormalities were seen, however. 2. Large non-bleeding internal hemorrhoids were seen. RECOMMENDATION: 1. Return the patient home. 2. Resume previous diet. 3. Repeat colonoscopy within one year due to suboptimal bowel preparation. 4. Findings were discussed with the patient. #[id number] [facility]
== END 2018-03-14 09:10 | disposition home or self-care (01) ==
LOC: AMB 05:40
PROVIDERS: ATTEND Internal Medicine Gastroenterology
DX: Z12.11 Encounter for screening for malignant neoplasm of colon (principal); K64.8 Other hemorrhoids; I10 Essential (primary) hypertension; I48.91 Unspecified atrial fibrillation; E66.9 Obesity, unspecified; Z88.8 Allergy status to other drugs, medicaments and biological substances; Z79.899 Other long term (current) drug therapy
CPT/HCPCS: 00812; G0121; J3010; J3490; J7120

== ENCOUNTER → 2018-08-20 | Outpatient (CLI) | payer MEDICARE, OTHER | LOC: GMAE 10:38 | PROVIDERS: ATTEND Family Medicine | DX: E03.9 Hypothyroidism, unspecified (principal) ==

== ENCOUNTER → 2018-12-10 | Outpatient (CLI) | payer MEDICARE, OTHER ==
--- NOTE | 2018-12-11 12:04 | MAM ---
EXAM DESCRIPTION: 3D Diagnostic, Bilateral: Digital Mammography CLINICAL HISTORY: 83 yearsFemaleINCONCLUSIVE MAMMOGRAM, Retraction of nipple . Inverted or retracted left nipple. No personal or family history of breast cancer. Childbirth. Hysterectomy. No HRT. Lifetime risk of developing breast cancer (Tyrer-Cuzick model) percentage is 2.3. COMPARISON: Bilateral screening digital breast tomosynthesis 06/21/2017. Diagnostic left breast tomosynthesis 07/12/2017.. No prior reports available.. TECHNIQUE: Bilateral CC, MLO, and LM projection full-field images, digital mammographic tomosynthesis technique. Bilateral 2-D digital full-field MLO images. CAD not available. FINDINGS: The breast parenchymal density pattern is: Heterogeneously dense breast tissue, which may obscure small masses. No skin thickening or right breast nipple retraction bilateral solitary microcalcifications. Bilateral vascular calcifications. Bilateral axillary lymph nodes. The left nipple appears to be slightly inverted. Heterogeneous fibroglandular elements in the anterior and middle third of the left breast with retroareolar fibroglandular densities which are stable since the prior diagnostic study. No new focal, stellate mass or density, focal asymmetry , and no suspicious microcalcifications bilaterally. IMPRESSION: Benign exam. BIRAD CATEGORY: 2 BENIGN FINDINGS. RECOMMENDATIONS: FOLLOW UP: Return to routine digital bilateral mammographic screening, one year interval from November 2018. Written communication explaining the IMPRESSION and follow-up, will be mailed to the patient and referring health care provider. The FINDINGS and the FOLLOW-UP plan were reviewed in person with the patient after the examination. According to the [employer], yearly mammograms are recommended starting at age 40 and continuing as long as a woman is in good health. Any breast change noted on a breast self-exam should be reported promptly to the patient's healthcare provider. Breast MRI is recommended for women with an approximately 20-25% or greater lifetime risk of breast cancer, including women with a strong family history of breast or ovarian cancer and women who have been treated for Hodgkin's disease. A negative mammographic report should not delay tissue diagnosis in patients with significant clinical history or physical findings. Extremely dense breast tissue limits the sensitivity of digital mammography. Electronically signed by: Ludwin Triana MD 12/11/2018 12:02 PM CDT
== END ==
LOC: MAMMO 08:54
PROVIDERS: ATTEND Family Medicine
DX: R92.2 Inconclusive mammogram (principal); N64.53 Retraction of nipple
CPT/HCPCS: 77066; G0279

== ENCOUNTER → 2019-02-20 | Outpatient (CLI) | payer MEDICARE, OTHER | LOC: GMAE 10:39 | PROVIDERS: ATTEND Family Medicine | DX: E03.9 Hypothyroidism, unspecified (principal) ==

== ENCOUNTER → 2019-04-12 | Outpatient (CLI) | payer MEDICARE, OTHER | LOC: RAD 08:40 | PROVIDERS: ATTEND Orthopaedic Surgery | DX: M51.36 Other intervertebral disc degeneration, lumbar region (principal); M51.86 Other intervertebral disc disorders, lumbar region; M17.11 Unilateral primary osteoarthritis, right knee; M21.061 Valgus deformity, not elsewhere classified, right knee ==

== ENCOUNTER → 2019-09-25 | Outpatient (CLI) | payer MEDICARE, OTHER | LOC: LAB.O 14:59 | PROVIDERS: ATTEND Urology | DX: R31.0 Gross hematuria (principal) ==

== ENCOUNTER → 2019-12-25 | Outpatient (CLI) | payer MEDICARE, OTHER | LOC: GMAE 11:43 | PROVIDERS: ATTEND Family Medicine | DX: E03.9 Hypothyroidism, unspecified (principal); I10 Essential (primary) hypertension; E78.2 Mixed hyperlipidemia ==

== ENCOUNTER → 2020-02-27 | Outpatient (CLI) | payer MEDICARE, OTHER ==
--- NOTE | 2020-02-27 16:25 | US ---
EXAM DESCRIPTION: Soft Tissue,Extremity: ULTRASOUND. CLINICAL HISTORY: 84 years Female SPONTANEOUS ECCHYMOSES COMPARISON: None Available. TECHNIQUE: Transcutaneous scanning: Solares-scale and Doppler modes. FINDINGS: Scanning of the region of bruising and pain in the right arm. Hypoechoic focus in the subcutaneous adipose tissue which is not vascular. Circumscribed margins. Dimensions are 7.0 x 5.9 x 1.7 mm. Not vascular. No posterior acoustic signature. IMPRESSION: Fluid versus liquefied hematoma. No solid mass. Electronically signed by: Ludwin Triana MD 02/27/2020 4:23 PM CDT
== END ==
LOC: US 08:30
PROVIDERS: ATTEND Family Medicine
DX: S55.011A Laceration of ulnar artery at forearm level, right arm, initial encounter (principal); R23.3 Spontaneous ecchymoses; M79.9 Soft tissue disorder, unspecified

== ENCOUNTER → 2020-03-30 | Outpatient (CLI) | payer MEDICARE, OTHER | LOC: GMAE 10:02 | PROVIDERS: ATTEND Family Medicine | DX: E03.9 Hypothyroidism, unspecified (principal) ==

== ENCOUNTER → 2020-06-22 | Outpatient (CLI) | payer MEDICARE, OTHER | LOC: GMAE 14:50 | PROVIDERS: ATTEND Family Medicine | DX: N39.0 Urinary tract infection, site not specified (principal) ==

== ENCOUNTER → 2020-07-01 | Outpatient (CLI) | payer MEDICARE, OTHER | LOC: GMAE 11:38 | PROVIDERS: ATTEND Family Medicine | DX: E03.9 Hypothyroidism, unspecified (principal) ==

== ENCOUNTER → 2020-07-16 | Outpatient (CLI) | payer MEDICARE, OTHER ==
--- NOTE | 2020-07-16 11:56 | RAD ---
EXAM DESCRIPTION: Knee,Right Complete CLINICAL HISTORY: 84 years Female, KNEE PAIN COMPARISON: None. Findings: Four views/radiographs Location: Right knee No acute fracture or dislocation. Moderate right knee osteoarthritis. Meniscal chondrocalcinosis. Osteopenia. No significant joint effusion. IMPRESSION: No evidence of acute process in the right knee. Electronically signed by: Solomon Strong MD 07/16/2020 11:55 AM [facility]
--- NOTE | 2020-07-16 12:19 | RAD ---
EXAM DESCRIPTION: Pelvis CLINICAL HISTORY: 84 years Female, HIP PAIN COMPARISON: April 12, 2019 Findings: One view(s)/radiograph(s) No acute fracture or dislocation. No focal soft tissue swelling. Osteopenia. 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 Similar degenerative changes in the spine. IMPRESSION: No acute osseous abnormality in the pelvis. Electronically signed by: Solomon Strong MD 07/16/2020 12:18 PM [facility]
== END ==
LOC: RAD 08:01
PROVIDERS: ATTEND Orthopaedic Surgery
DX: M25.551 Pain in right hip (principal); M25.561 Pain in right knee

== ENCOUNTER 2020-07-25 17:16 | Emergency (ER) | payer MEDICARE, OTHER ==
[2020-07-25 17:35] VITALS: TEMP 96.8
--- NOTE | 2020-07-25 18:17 | ED.PDOC ---
History of Present Illness - General Chief Complaint: Syncope/Near Syncope Stated Complaint: near syncope,dizziness,diaphoresis Time Seen by Provider: 07/25/20 17:31 Source: patient Exam Limitations: no limitations - History of Present Illness Initial Comments: PATIENT PRESENTS AFTER WHAT SOUNDS LIKE A NEAR SYNCOPAL EPISODE AT HOME, BECAME LIGHT HEADED, FAINT, NAUSEATED, SEVERE DIAPHORESIS, SYMPTOMS LASTED ABOUT 10 MINUTES THEN RESOLVED SPONTANEOUSLY, NOW FEELS BETTER. SHE WAS STANDING WHEN OCCURRED. PATIENT DENIES SIMILAR SYMPTOMS, SHE DOES TAKE MEDICATION FOR HTN, DENIES RECENT CHANGE IN INTAKE. PMX OF AFIB, HTN, ON ELIQUIS Precipitating Factors: blurred vision, lightheadedness Loss of Consciousness: no loss of consciousness Current Symptoms: back to normal Allergies/Adverse Reactions: Allergies Lidocaine [From Xylocaine] Allergy (Severe, Verified 12/12/17 14:53) Shellfish Allergy Allergy (Verified 12/12/17 14:53) Home Medications: Ambulatory Orders Losartan Potassium 50 mg PO DAILY 05/13/16 Venlafaxine HCl [Effexor] 150 mg PO DAILY 05/13/16 Atorvastatin Calcium [Lipitor] 10 mg PO DAILY 08/21/17 Levothyroxine Sodium [Synthroid] 100 mcg PO DAILY 08/21/17 Apixaban [Eliquis] 2.5 mg PO BID 12/12/17 Review of Systems - Review of Systems Constitutional: States: diaphoresis, weakness. Denies: chills, malaise EENTM: States: no symptoms reported Respiratory: States: no symptoms reported Cardiology: States: see HPI, syncope - NEAR Gastrointestinal/Abdominal: States: nausea. Denies: abdominal pain, constipation, diarrhea Musculoskeletal: States: no symptoms reported Skin: States: no symptoms reported Neurological: States: no symptoms reported Past Medical History (General) - Patient Medical History Hx Seizures: No Hx Stroke: No Hx Dementia: No Hx Asthma: No Hx of COPD: No Hx Cardiac Disorders: Yes - Atrial fib Hx Congestive Heart Failure: No Hx Pacemaker: No Hx Hypertension: Yes Hx Thyroid Disease: Yes - hypo Hx Diabetes: No Hx Gastroesophageal Reflux: Yes Hx Renal Disease: No Hx Cancer: No Hx of HIV: No Hx Hepatitis C: No Hx MRSA: No Surgical History: tonsillectomy, Hysterectomy - Vaccination History Hx Influenza Vaccination: Yes Hx Pneumococcal Vaccination: Yes - Social History Hx Tobacco Use: No Hx Alcohol Use: No Hx Substance Use: No Hx Depression: Yes Hx Physical Abuse: No Hx Emotional Abuse: No - Female History Patient : No Physical Exam - Physical Exam General Appearance: Alert, Anxious, Well Developed, Well Groomed, Well Hydrated, Well Nourished Eyes, Ears, Nose, Throat Exam: PERRL/EOMI, normal ENT inspection Neck: non-tender, full range of motion, supple, normal inspection Cardiovascular/Respiratory: regular rate, rhythm, no M/R/G, normal peripheral pulses, no JVD, normal breath sounds, no respiratory distress Gastrointestinal/Abdominal: normal bowel sounds, non tender, soft, no organomegaly Extremity: normal range of motion, non-tender, normal inspection, no pedal edema Mental Status: alert, oriented x 3, 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 Copy, Patient Portal Self Enrollment Instructions: Near Fainting (DC) Referrals: CONCHIS DAS MD [Primary Care Provider] - 1-2 Weeks Home Medications: Ambulatory Orders Losartan Potassium 50 mg PO DAILY 05/13/16 Venlafaxine HCl [Effexor] 150 mg PO DAILY 05/13/16 Atorvastatin Calcium [Lipitor] 10 mg PO DAILY 08/21/17 Levothyroxine Sodium [Synthroid] 100 mcg PO DAILY 08/21/17 Apixaban [Eliquis] 2.5 mg PO BID 12/12/17 Additional Instructions: RECOMMEND [facility] MONITOR. PLEASE CONTACT YOUR PCP TO ARRANGE.
--- NOTE | 2020-07-25 18:27 | RAD ---
EXAM DESCRIPTION: Chest,2 Views CLINICAL HISTORY: Shortness of breath COMPARISON: Chest radiograph dated December 12, 2017 TECHNIQUE: Two-view radiograph of the chest FINDINGS: Cardiac silhouette shows normal heart size. Pulmonary vascularity is within normal limits. Minimal linear opacity in the left lung base most compatible with atelectasis. Otherwise, lungs show no confluent infiltrates. No pleural effusion. No pneumothorax. Degenerative changes of the thoracic spine. IMPRESSION: 1. Minimal left basilar atelectasis. Otherwise, lungs show no confluent infiltrates. 2. Other findings as above. Electronically signed by: Jose D Quick MD 07/25/2020 6:25 PM [facility]
[2020-07-25 19:46] VITALS: BP 148/82; O2SAT 97
== END 2020-07-25 19:46 | disposition home or self-care (01) ==
LOC: ER 17:16
DX: R55 Syncope and collapse (principal); N39.0 Urinary tract infection, site not specified; E03.9 Hypothyroidism, unspecified; I10 Essential (primary) hypertension; I48.91 Unspecified atrial fibrillation; K21.9 Gastro-esophageal reflux disease without esophagitis; Z79.899 Other long term (current) drug therapy; Z79.01 Long term (current) use of anticoagulants; Z88.8 Allergy status to other drugs, medicaments and biological substances; Z91.013 Allergy to seafood

== ENCOUNTER → 2020-07-27 | Outpatient (CLI) | payer MEDICARE, OTHER | LOC: GMAE 10:23 | PROVIDERS: ATTEND Family Medicine | DX: R55 Syncope and collapse (principal); I10 Essential (primary) hypertension ==

== ENCOUNTER → 2020-07-31 | Outpatient (CLI) | payer MEDICARE, OTHER | LOC: RESP 11:18 | PROVIDERS: ATTEND Family Medicine | DX: R55 Syncope and collapse (principal) ==